=== PATIENT | female | born 1965 | race Caucasian/White ===

== ENCOUNTER 2019-12-29 11:05 | Emergency (ER) | payer OTHER, MEDICAID, SELFPAY ==
[2019-12-29 11:05] VITALS: BP 159/74; PULSE 66; RESP 18; TEMP 36.7; O2SAT 98
--- NOTE | 2019-12-29 11:12 | DI.RAD.S_ITS ---
PROCEDURE: XR ANKLE RT MIN 3V INDICATIONS: pain right ankle TECHNIQUE: 3 views of the ankle were acquired. COMPARISON: None. FINDINGS: Bones: No acute fractures or dislocations. Small 2 x 4 mm ossification noted adjacent to the medial malleolus which could represent accessory ossicle versus chronic small avulsion injury. Ankle mortise is normally aligned. No suspicious bony lesions. Plantar calcaneal bone spur. Soft tissues: No tibiotalar joint effusion. Achilles tendon appears normal. IMPRESSION: No acute fracture. No acute osseous lesion. If symptoms and/or clinical suspicion for pathology persists, further assessment with repeat radiographs (7-10 days) or advanced imaging (e.g. CT, MRI or bone scan) may be helpful. Dictated by: Nazia Salgado MD, PhD on 12/29/2019 at 11:30 Approved by: Nazia Salgado MD, PhD on 12/29/2019 at 11:32
--- NOTE | 2019-12-29 11:17 | ED.LOWEXIN ---
HPI - Extremity Injury (Lower) <VIGNESH DelongP - Last Filed: 12/29/19 12:03> General Chief Complaint: Extremity Injury, Lower Stated Complaint: right ankle pain Time Seen by Provider: 12/29/19 11:10 Source: patient Mode of arrival: Wheelchair Limitations: no limitations History of Present Illness HPI Narrative: This is a 54 year year female, nonsmoker, who presents to ED with friend with chief complain of right lateral deep ankle pain since yesterday afternoon. Patient states prior to this, she has hiked a steep hill up and down in a flip-flops but is not able to recall on injury or trauma. Patient had used ice and elevation for discomfort last night. Patient denies swelling or bruise around the ankle. Patient reports pain increases with inverting and plantar extension and bearing weight. She states has been limping with ambulation and has been using friend's crutches which has been helpful. Patient reports intact sensation. Patient reports at rest pain is 1/10 which increases up to 10/10 depends on the position. She has not used any NAIDS at home. Related Data Allergies Allergy/AdvReac Type Severity Reaction Status Date / Time No Known Drug Allergies Allergy Verified 12/29/19 11:12 Review of Systems <STEVE Delong - Last Filed: 12/29/19 12:03> Review of Systems Narrative: General: Denies fever, chills, fatigue, malaise, sweats. HEENT: Denies sinus pain, ear pain, sore throat, difficulty swallowing, dizziness. Respiratory: Denies dyspnea, cough, wheezing, hemoptysis, sputum. Cardiovascular: Denies chest pain, palpitations, orthopnea, edema. Gastrointestinal: Denies nausea, vomiting, abdominal pain, diarrhea, constipation, melena. : Denies dysuria, frequency, incontinence, hematuria, urinary retention. Musculoskeletal: HPI Skin: Denies rash, skin lesions, or other. Neurologic: Denies weakness, headache, numbness, change in speech, confusion, seizures, incoordination. Psychiatric: No concerning psychosocial issues. 12-point review of systems is negative except for those stated above. Patient History <STEVE Delong - Last Filed: 12/29/19 12:03> Medical History Anxiety (Acute) History of prediabetes (Acute) Social History Smoking Status: Never smoker Smoking Status: Never smoker alcohol intake frequency: 0-2 drinks per day Substance Use Type: does not use Exam <STEVE Delong - Last Filed: 12/29/19 12:03> Narrative Exam Narrative: General appearance: well developed, well nourished, in no acute distress. Head: normocephalic, atraumatic, no scalp lesions, non-tender. ENT: Hearing grossly intact. Nose without bleeding, purulent discharge. Airway patent. Neck/Thyroid: neck supple, full range of motion, no visible masses or meningeal signs. No JVD, non-tender without lymphadenopathy. Skin: no suspicious rashes, lesions over visible areas. Warm and dry and appropriate color for ethnicity. Heart: no clubbing, no cyanosis, no edema. S1 and S2 normal. RRR w/o murmurs, clicks, or bruits. Lungs: Breathing even and unlabored. No stridor. No accessory muscles used. Able to speak in full sentences. Chest: normal shape and expansion. Abdomen: non-obese, non-distended. Neurologic: alert and oriented. Cognitive exam, [employer] and PNS grossly intact on informal exam. Psych: good eye contact, normal affect. Initial Vital Signs Initial Vital Signs: Vital Signs Temperature 98.1 F 12/29/19 11:05 Pulse Rate 66 12/29/19 11:05 Respiratory Rate 18 12/29/19 11:05 Blood Pressure 159/74 H 12/29/19 11:05 Pulse Oximetry 98 12/29/19 11:05 Extrem Right lower extremity: knee Details: normal to inspection; no tenderness, ankle Details: normal to inspection, tenderness Location: of the lateral malleolus, no edema and abnormal ROM Details: pain with active ROM Details: with plantar flexion and with inversion; no swelling, no unusual warmth, no ecchymosis and no crepitus and foot Details: normal capillary refill, normal to inspection, vascular exam Details: dorsalis pedis pulse present and normal capillary refill and motor-sensory exam Details: light-touch normal; no ecchymosis <DO Abimael Washington Last Filed: 12/29/19 12:13> Initial Vital Signs Initial Vital Signs: Vital Signs Temperature 98.1 F 12/29/19 11:05 Pulse Rate 66 12/29/19 11:05 Respiratory Rate 18 12/29/19 11:05 Blood Pressure 159/74 H 12/29/19 11:05 Pulse Oximetry 98 12/29/19 11:05 Procedures <STEVE Delong - Last Filed: 12/29/19 12:03> Orthopedic Splinting/Casting Ankle RT: Side: right Lower Extremity Injury Location: ankle Lower Extremity Immobilizer: stirrup splint and Lopez wrap Post splinting neuro exam: intact Post splinting vascular exam: intact Placed by: Nursing Scores <STEVE Delong - Last Filed: 12/29/19 12:03> GCS Pravin coma scale eye opening: Spontaneous Pravin coma scale verbal response: Orientated Pravin coma scale motor response: Obey commands Pravin coma scale total score: 15 Course <STEVE Delong - Last Filed: 12/29/19 12:03> Orders Ordered: ED Orders 12/29/19 11:12 XR ankle RT min 3V Stat Vital Signs Vital signs: Vital Signs - 8 hr 12/29/19 11:05 Temperature 98.1 F Pulse Rate 66 Respiratory Rate 18 Blood Pressure 159/74 H Pulse Oximetry 98 <Rico Pozo DO - Last Filed: 12/29/19 12:13> Orders Ordered: ED Orders 12/29/19 11:12 XR ankle RT min 3V Stat Vital Signs Vital signs: Vital Signs - 8 hr 12/29/19 11:05 Temperature 98.1 F Pulse Rate 66 Respiratory Rate 18 Blood Pressure 159/74 H Pulse Oximetry 98 MDM - Extremity Injury (Lower) <STEVE Delong - Last Filed: 12/29/19 12:03> Differential Diagnosis Differential diagnosis: Likely ankle sprain and strain and ankle fracture Medical Records Attestation: I reviewed the patient's medical records. Imaging Data XR-Ankle RT: Radiologist's Impression: [address] [address] XRay Report Signed Patient: Alicia Arzate [facility]#: [id number] : 1965Acct:[id number] Age/Sex: 54 / FDate of Service: 12/29/19 Loc: ED Accession Number: [id number] Procedure: XR ankle RT min 3V Ordering Provider: Dimas Brandt PROCEDURE: XR ANKLE RT MIN 3V INDICATIONS: pain right ankle TECHNIQUE: 3 views of the ankle were acquired. COMPARISON: None. FINDINGS: Bones: No acute fractures or dislocations. Small 2 x 4 mm ossification noted adjacent to the medial malleolus which could represent accessory ossicle versus chronic small avulsion injury. Ankle mortise is normally aligned. No suspicious bony lesions. Plantar calcaneal bone spur. Soft tissues: No tibiotalar joint effusion. Achilles tendon appears normal. IMPRESSION: No acute fracture. No acute osseous lesion. If symptoms and/or clinical suspicion for pathology persists, further assessment with repeat radiographs (7-10 days) or advanced imaging (e.g. CT, MRI or bone scan) may be helpful. Dictated by: Nazia Salgado MD, PhD on 12/29/2019 at 11:30 Approved by: Nazia Salgado MD, PhD on 12/29/2019 at 11:32 [facility] Narrative Medical decision making narrative: X-ray test does not indicate fractures or dislocation. Sensation, circulation distal to painful area intact. Affected ankle has been supported by prefabricated splint. Patient declined crutches since she has been using her friends neighbors. Patient declined Tylenol and or Motrin that was offered in ED. return precautions were discussed with the patient and written x-ray report provided to patient since she is a visitor to from [place]. No further questions at this time and patient agrees with the treatment plan. Discharge Plan Departure Patient Disposition: Home Clinical Impression: Ankle sprain and strain Instructions: DI for Ankle Pain Activity Restrictions/Additional Instructions: You have been diagnosed with [right lateral malleolar ankle pain. X-ray does not indicate fracture or dislocation today. Your ankle has been supported by prefabricated ankle splint for comfort.]. What to do: *Take your medications as directed. You can use ibuprofen/Motrin 400-600 mg up to 3 times a day as needed with food for pain and inflammation. Also, you can use [id number] Tylenol 650-1000 mg up to 3 to 4 times a day as needed for pain. Please use RICE therapy. *Follow up with your primary care provider in 2-3 days, call for an appointment. Let them know you were seen in the ED and that we asked you to be seen in follow up. If the ankle pain worsens or persists longer than expected duration, you may need repeat or advanced imaging test. Please start stretching exercise when acute pain subsides. *Return to ED if you have any new, worsening, or concerning symptoms, such as [chest pain, breathing difficulty, unable to tolerate fluids, worsening pain, tingling/numbness/weakness to affected foot or any acute concerns]. Referrals: Izaiah Rivero [Other] <Rico Pozo, DO - Last Filed: 12/29/19 12:13> Cosign ED Attending Cosignature Attestation: Dr Pozo Co-Sign Statement: I was available for consultation during this patient's emergency department visit. This chart is signed by myself for administrative purposes only. I did not have direct contact with this patient during this visit. They were seen independently by the APC.
== END 2019-12-29 12:16 | disposition home or self-care (01) ==
PROVIDERS: Emergency Provider Nurse Practitioner Family
DX: S93.401A Sprain of unspecified ligament of right ankle, initial encounter (principal); S96.911A Strain of unspecified muscle and tendon at ankle and foot level, right foot, initial encounter
CPT/HCPCS: 73610; 99283